=== PATIENT | female | born 1980 | race Caucasian/White ===

== ENCOUNTER 2024-07-17 09:11 | Day surgery (SDC) | payer OTHER ==
[2024-07-17 09:46] VITALS: BMI 23.8
[2024-07-17] MEDS ORDERED: TOBRAMYCIN 0.3% OPHTH SOLN 5 ML BOTTLE ONE (10:00)
[2024-07-17] MEDS ORDERED: POVIDONE-IODINE 5% OPHTHALMIC PREP 30 ML SOLUTION ONE (10:22)
[2024-07-17] MEDS ORDERED: LIDOCAINE 1%/EPI 1:100000 (20 ML MULTI DOSE VIAL) ONE (10:22)
[2024-07-17] MEDS ORDERED: NEO/POLYMYX B SULF/DEXAMETH OPHTHALMIC 5ML BOTTLE ONE (10:22)
[2024-07-17] MEDS ORDERED: BACITRACIN/POLYMYXIN OPH OINT 3.5 GM TUBE ONE (10:22)
[2024-07-17] MEDS ORDERED: TETRACAINE 0.5% OPHTH SOLN 2 ML BOTTLE ONE ×2 (10:22→11:27)
[2024-07-17] MEDS ORDERED: LIDOCAINE HCL 2% JELLY 10 ML CARTRIDGE ONE (10:22)
[2024-07-17] MEDS ORDERED: ACETAMINOPHEN 325 MG TABLET (FP) PO PRN (11:15)
[2024-07-17] MEDS ORDERED: MITOMYCIN 0.02% EYE DROPS - 2ML VIAL IO ONE (11:30)
[2024-07-17] MEDS ORDERED: MIDAZOLAM HCL 2 MG/2 ML SINGLE DOSE VIAL ONE (11:31)
[2024-07-17] MEDS ORDERED: TOBRA 0.3%/DEXAMETH 0.1% OPHTHALMIC SUSP 2.5 ML BTL OS SCH (12:00)
[2024-07-17 13:32] VITALS: TEMP 97.1
[2024-07-17 13:41] VITALS: BP 110/54; PULSE 58; RESP 18
== END 2024-07-17 13:25 | disposition home or self-care (01) ==
LOC: FASU 09:11
PROVIDERS: ATTEND Ophthalmology
PROC: 08BTXZZ Excision of Left Conjunctiva, External Approach (ICD-10-PCS; principal; 2024-07-17 11:37)
DX: H11.052 Peripheral pterygium, progressive, left eye (principal)
CPT/HCPCS: 88304-TC; V2790

== ENCOUNTER 2024-08-31 08:36 | Day surgery (SDC) | payer OTHER ==
[2024-08-30 16:01] VITALS: BMI 23.8
[~2024-08-31 08:36] MED LIST: ACETAMINOPHEN 325 MG TABLET (FP) PO PRN
[2024-08-31] MEDS ORDERED: TOBRA 0.3%/DEXAMETH 0.1% OPHTHALMIC SUSP 2.5 ML BTL ONE (09:02)
[2024-08-31] MEDS: TOBRA 0.3%/DEXAMETH 0.1% OPHTHALMIC SUSP 2.5 ML BTL OD SCH (09:05)
[2024-08-31 09:20] VITALS: RESP 18
[2024-08-31] MEDS ORDERED: POVIDONE-IODINE 5% OPHTHALMIC PREP 30 ML SOLUTION ONE (10:45)
[2024-08-31] MEDS ORDERED: BETAXOLOL HCL 0.25% OPHTHALMIC 10 ML DROPSBTL ONE (10:45)
[2024-08-31] MEDS ORDERED: TETRACAINE 0.5% OPHTH SOLN 2 ML BOTTLE ONE (10:45)
[2024-08-31] MEDS ORDERED: BACITRACIN/POLYMYXIN OPH OINT 3.5 GM TUBE ONE (10:45)
[2024-08-31] MEDS ORDERED: BSS (NA/CA/MG/K) BALANCED SALT SOLUTION OPHTH SOLN 15 ML BOTTLE ONE (10:45)
[2024-08-31] MEDS ORDERED: NEO/POLYMYX B SULF/DEXAMETH OPHTHALMIC 5ML BOTTLE ONE (10:46)
[2024-08-31] MEDS ORDERED: LIDOCAINE 1%/EPI 1:100000 (20 ML MULTI DOSE VIAL) ONE (10:46)
[2024-08-31] MEDS ORDERED: LIDOCAINE HCL 2% JELLY 10 ML CARTRIDGE ONE (10:46)
[2024-08-31] MEDS ORDERED: MIDAZOLAM HCL 2 MG/2 ML SINGLE DOSE VIAL ONE (10:52)
[2024-08-31] MEDS ORDERED: KETOROLAC TROMETHAMINE 30 MG/1 ML VIAL ONE (10:52)
[2024-08-31 11:51] VITALS: TEMP 97.9
[2024-08-31 12:33] VITALS: BP 102/50; PULSE 64
== END 2024-08-31 12:29 | disposition home or self-care (01) ==
LOC: FASU 08:36
PROVIDERS: ATTEND Ophthalmology
PROC: 08BSXZZ Excision of Right Conjunctiva, External Approach (ICD-10-PCS; principal; 2024-08-31 11:06)
DX: H11.051 Peripheral pterygium, progressive, right eye (principal)
CPT/HCPCS: 81025; 88304-TC; V2790